=== PATIENT | female | born 1955 | race Caucasian/White ===

== ENCOUNTER → 2016-05-23 | Outpatient (CLI) | payer BC ==
[~2016-05-23] MED LIST: ASPI-482 PO; CRESTOR10 MG PO; IBUP50DR45 PO; RANI75TA12 PO
--- NOTE | 2016-05-23 16:00 | KCIC ---
Ultrasound Pelvis Indication:Reason For Study Reason: PELVIC PAIN / Spl. Instructions: / History: Technique: Multiple real-time grayscale images were obtained over the pelvis transabdominally and transvaginally. Color Doppler imaging was utilized. Findings: The uterus is normal in size measuring 5.0 x 3.2 x 2.6 cm. The endometrium is also within normal limits measuring 2 mm in thickness. The ovaries are not visualized. No pelvic free fluid is identified. Impression: Nonvisualization of the bilateral ovaries. The uterus is normal in appearance. No free pelvic fluid. Electronically signed by: Tony Crow (May 23, 2016 15:58:50)
== END | disposition home or self-care (01) ==
LOC: KCIC US 12:53
PROVIDERS: ATTEND Family Medicine
DX: R10.2 Pelvic and perineal pain (principal)
CPT/HCPCS: 76830; 76856

== ENCOUNTER → 2016-06-05 | Outpatient (CLI) | payer BC ==
[~2016-06-05] MED LIST changes: +IOHEXOL 240 MG/ML 50ML VIAL. PO ONE; +IOHEXOL 300 MG/ML 100ML VIAL. IV ONE
--- NOTE | 2016-06-05 15:43 | KCIC ---
PROCEDURE CT abdomen and pelvis with contrast. HISTORY Right groin pain, palpable mass. TECHNIQUE Helical CT imaging of the abdomen and pelvis performed after oral contrast and 98 cc Omnipaque 300 IV contrast. PQRS: One or more the following individualized dose reduction techniques were utilized for the study: 1. Automated exposure control. 2. Adjustment of the mA and/or kV according to patient size. 3. Use of iterative reconstruction technique. COMPARISON None. FINDINGS Moderate scarring and/or atelectasis in the lung bases. Lateral right lower lobe bulla. Cardiac size normal. Cholecystectomy. Common bile duct is prominent but tapers distally. Liver, spleen, pancreas, adrenal glands, and abdominal aortic caliber are normal. Moderate atherosclerotic calcification. Kidneys enhance symmetrically without hydronephrosis. Stomach unremarkable. No dilated small bowel. Sigmoid colon diverticulosis without inflammation. Portions of transverse colon not well distended accentuating wall thickness. No colon wall thickening is seen. Appendix is small caliber. Urinary bladder is normal. Uterus atrophic. Ovaries symmetric. No pelvic free fluid. Subcentimeter bilateral inguinal lymph nodes. There appears to be small right inguinal hernia that contains fluid and fat. Hernia defect best suggested on coronal image 21. Mild right convexity lumbar scoliosis. Degenerative change. IMPRESSION 1. Small right inguinal hernia contains fluid and fat. 2. Sigmoid colon diverticulosis without evidence of diverticulitis. 3. Moderate scarring and/or atelectasis in the lung bases. Electronically signed by: Noel Castañeda MD (Jun 05, 2016 15:42:34)
== END | disposition home or self-care (01) ==
LOC: KCIC CT 14:05
PROVIDERS: ATTEND Family Medicine
DX: R10.31 Right lower quadrant pain (principal); N28.89 Other specified disorders of kidney and ureter; R19.00 Intra-abdominal and pelvic swelling, mass and lump, unspecified site
CPT/HCPCS: 74177; Q9966; Q9967

== ENCOUNTER → 2017-07-09 | Outpatient (CLI) | payer BC ==
[~2017-07-09] MED LIST changes: -ASPI-482 PO; +CONTRAST GIVEN MC; -CRESTOR10 MG PO; -IBUP50DR45 PO; -IOHEXOL 240 MG/ML 50ML VIAL. PO ONE; -IOHEXOL 300 MG/ML 100ML VIAL. IV ONE; -RANI75TA12 PO
[2017-07-09] MEDS: IOHEXOL 240 MG/ML 50ML VIAL. PO (14:49)
[2017-07-09] MEDS: IOHEXOL 300 MG/ML 100ML VIAL. IV (14:49)
== END | disposition home or self-care (01) ==
LOC: KCIC DEXA 13:01
DX: Z12.31 Encounter for screening mammogram for malignant neoplasm of breast (principal); Z13.820 Encounter for screening for osteoporosis; K40.90 Unilateral inguinal hernia, without obstruction or gangrene, not specified as recurrent; K57.30 Diverticulosis of large intestine without perforation or abscess without bleeding; M81.0 Age-related osteoporosis without current pathological fracture; G89.18 Other acute postprocedural pain; Z78.0 Asymptomatic menopausal state; Z90.49 Acquired absence of other specified parts of digestive tract
CPT/HCPCS: 74177; 77063; 77067; 77080; Q9966; Q9967

== ENCOUNTER → 2018-08-12 | Outpatient (CLI) | payer BC ==
[2016-11-22 11:36] VITALS: BP 124/52
[~2018-08-12] MED LIST changes: +ASPI-482 PO; -CONTRAST GIVEN MC; +CRESTOR10 MG PO; +IBUP50DR45 PO; +OXYC1TAB15 PO; +RANI75TA89 PO
--- NOTE | 2018-08-12 15:39 | KCIC ---
Two-view chest dated 08/12/2018. Comparison made to 06/05/2005. CLINICAL INDICATION: Emphysema. History of prior tobacco use. FINDINGS: PA and lateral views obtained. Heart and mediastinal contours are stable. Postsurgical changes at the right lung apex and right perihilar region with biapical lucency, unchanged. No consolidation or pleural effusion. No pneumothorax. IMPRESSION: No acute radiographic abnormality. Stable findings compared to 06/05/2005. Electronically signed by: Jasper Olson MD (08/12/2018 3:36 PM) [id number]
--- NOTE | 2018-08-12 16:02 | KCIC ---
EXAM: Bilateral digital screening mammogram with tomosynthesis. HISTORY: 63-year-old female presents for screening mammography. TECHNIQUE: Full-field digital craniocaudal and mediolateral oblique 2D and 3D tomosynthesis images of both breasts are obtained for evaluation. Computer aided detection with AdTrib[employer] software version 9.3 was applied. COMPARISON: 07/09/2017 BREAST PARENCHYMAL DENSITY: Level C - Heterogeneously dense. FINDINGS: There is no new suspicious mass, microcalcification or region of architectural distortion. There is stable areas of nodularity and asymmetry within both breasts. Benign calcifications. IMPRESSION: BI-RADS Category 2: Benign finding(s). RECOMMENDATION: Annual mammography is recommended. If your mammogram demonstrates that you have dense breast tissue, which could hide abnormalities, and if you have other risk factors for breast cancer that have been identified, you might benefit from supplemental screening tests that may be suggested by your ordering physician. Dense breast tissue, in and of itself, is a relatively common condition. This information is not provided to cause undue concern, but rather to raise your awareness and to promote discussion with your physician regarding the presence of other risk factors, in addition to dense breast tissue. A report of your mammography results will be sent to you and your physician. You should contact your physician if you have any questions or concerns regarding this report. Mammography is a sensitive method for finding small breast cancers, but it does not detect them all and is not a substitute for careful clinical examination. A negative mammogram does not negate a clinically suspicious finding and should not result in delay in biopsying a clinically suspicious abnormality. PQRS compliance statement - Patient information was entered into a reminder system with a target due date for the next mammogram. "Our facility is accredited by the [employer] Mammography [employer]." Electronically signed by: Kasia Lopez MD (08/12/2018 3:59 PM) [id number]
== END | disposition home or self-care (01) ==
LOC: KCIC MAMMO 14:43
PROVIDERS: ATTEND Family Medicine
DX: Z12.31 Encounter for screening mammogram for malignant neoplasm of breast (principal); N64.89 Other specified disorders of breast; J43.9 Emphysema, unspecified; Z87.891 Personal history of nicotine dependence
CPT/HCPCS: 71046; 77063; 77067

== ENCOUNTER → 2018-11-11 | Outpatient (CLI) | payer BC ==
[2016-11-22 11:36] VITALS: BP 124/52
[~2018-11-11] MED LIST changes: +CONTRAST GIVEN. MC PRN; +IOHEXOL 240 MG/ML 50ML VIAL. PO ONE; +IOHEXOL 300 MG/ML 100ML VIAL. IV ONE
--- NOTE | 2018-11-11 16:14 | KCIC ---
EXAM: CT Abdomen and Pelvis with IV contrast CLINICAL HISTORY: Right lower quadrant pain. COMPARISON: 07/09/2017 11/16/2016 TECHNIQUE: Helical CT of the abdomen and pelvis was performed following the administration of intravenous contrast. Axial, coronal and sagittal reformatted images were generated. PQRS compliance statement - One or more of the following individualized dose reduction techniques were utilized for this study: 1. Automated exposure control 2. Adjustment of the mA and/or kV according to patient size 3. Use of iterative reconstruction technique FINDINGS: Lower chest: Bilateral emphysematous changes are seen. No lobar consolidation. Abdomen and Pelvis: Diffusely decreased hepatic attenuation may be seen with hepatic steatosis. No focal liver lesion. There has been a cholecystectomy although degree of biliary ductal dilatation is greater than expected measuring up to 15 mm. Spleen is unremarkable. Adrenal glands are normal. Pancreas is mildly atrophic. Symmetric nephrograms. Right interpolar and lower pole renal cortical scarring. No hydronephrosis or hydroureter. Bladder is unremarkable. Moderate colonic stool content is seen. Appendix is normal. No small or large bowel dilatation. No evidence for bowel obstruction. Colonic diverticulosis without evidence for acute diverticulitis. Asymmetric enlargement of the right tensor fascia robbie with fatty atrophy of the left tensor fascia robbie. Bones: Degenerative changes of the spine are seen. No aggressive osseous lesion. Thoracolumbar scoliosis. IMPRESSION: 1. Hepatic hypoattenuation may be seen with hepatic steatosis. 2. Appendix is normal. 3. Intermittent right renal cortical thinning, chronic scarring 4. Although there is been a cholecystectomy, there is biliary ductal dilatation. This can be correlated with patient's lab values and if further imaging is required, MRI/MRCP would provide additional details. Of note, the degree of dilatation is only marginally increased relative to prior CT from 07/09/2017 and 11/16/2016. 5. Asymmetric enlargement of the right tensor fascia robbie with fatty atrophy of the left tensor fascia robbie. Electronically signed by: Paul Robison MD (11/11/2018 4:11 PM) [facility]
== END | disposition home or self-care (01) ==
LOC: KCIC CT 12:48
PROVIDERS: ATTEND Family Medicine
DX: K86.89 Other specified diseases of pancreas (principal); N28.89 Other specified disorders of kidney and ureter; J43.9 Emphysema, unspecified; M62.89 Other specified disorders of muscle; M62.58 Muscle wasting and atrophy, not elsewhere classified, other site; M47.9 Spondylosis, unspecified; Z79.01 Long term (current) use of anticoagulants; Z88.0 Allergy status to penicillin; Z90.49 Acquired absence of other specified parts of digestive tract
CPT/HCPCS: 74177; 82565; Q9966; Q9967

== ENCOUNTER → 2020-06-01 | Outpatient (CLI) | payer BC ==
[2016-11-22 11:36] VITALS: BP 124/52
[~2020-06-01] MED LIST changes: -CONTRAST GIVEN. MC PRN; -IOHEXOL 240 MG/ML 50ML VIAL. PO ONE; -IOHEXOL 300 MG/ML 100ML VIAL. IV ONE
--- NOTE | 2020-06-01 13:45 | KCIC ---
Bilateral digital screening mammograms with 3-D tomosynthesis: Reason for examination: Routine screening. Comparison is made to previous studies dated back to 02/08/2016. Bilateral mammograms in CC and oblique projections were obtained with 2-D imaging and 3-D tomosynthes is imaging on a Siemens Inspiration unit and reviewed on the workstation. Interpretation was made mary knutson the benefit of CAD. The skin and nipples show no abnormalities. No abnormal axillary lymph nodes are seen. The breast par enchyma shows scattered fatty and fibroglandular density. (Breast density: Category B.) There continu e to be parenchymal asymmetries bilaterally which are stable. There are small nodular parenchymal den sities bilaterally which are stable. There are no new dominant masses, suspicious calcifications or a rchitectural distortion. Benign calcifications are present. Impression: No evidence of malignancy. Recommend routine screening. BI-RAD Category 2: Benign. "Our facility is accredited by the [employer] Mammography Program." This patient's information has been entered into a reminder system for the patient to be notified wit h the results of her examination and a target date for the next mammogram. Electronically signed by: Janna Shelley MD (06/01/2020 1:43 PM) [id number]
== END ==
LOC: KCIC MAMMO 12:29
PROVIDERS: ATTEND Family Medicine
DX: Z12.31 Encounter for screening mammogram for malignant neoplasm of breast (principal)
CPT/HCPCS: 77063; 77067

== ENCOUNTER → 2020-10-25 | Outpatient (CLI) | payer BC, OTHER ==
[2016-11-22 11:36] VITALS: BP 124/52
[~2020-10-25] MED LIST changes: +IOHEXOL 240 MG/ML 50ML VIAL. PO ONE; +IOHEXOL 300 MG/ML 100ML VIAL. IV ONE
--- NOTE | 2020-10-25 14:57 | KCIC ---
PQRS Compliance Statement: One or more of the following individualized dose reduction techniques were utilized for this examinat ion: 1. Automated exposure control 2. Adjustment of the mA and/or kV according to patient size 3. Use of iterative reconstruction technique CT ABDOMEN+PELVIS W 10/25/2020 1:30 PM Indication: Right and left lower quadrant abdominal pain. Chronic constipation. COMPARISON: CT abdomen/pelvis 11/11/2018 TECHNIQUE: Multiple axial CT images of the abdomen and pelvis were obtained after the intravenous adm inistration of 90 cc Omnipaque 300. Coronal and sagittal reformats are provided. FINDINGS: Moderate pulmonary emphysema identified at the lung bases. There is suggestion of air trapping medial right middle lobe. Heart size within normal limits. Liver is normal in appearance. Hepatic lesions. Portal venous system is widely patent. Mild intrahepatic and extra hepatic biliary ductal dilatation status post cholecystectomy, likely associated with the reservoir effect. Spleen and adrenal glands a re normal in appearance. Moderate fatty atrophy of the pancreas. Ectasia of infrarenal abdominal aort a measuring up to 2.1 cm dense calcified atheromatous plaque. There is a right pelvic sidewall lymph node measuring 9 mm (series 2, image 61). No free fluid or free intraperitoneal air. Oral contrast was administered. Opacified bowel loops demonstrate normal mucosal fold pattern. Small and large bowel are normal in caliber. There is no evidence for bowel obstruction. There are no peric olonic inflammatory changes. A normal, nondilated appendix is visualized without adjacent inflammator y changes. The kidneys enhance symmetrically. There is no suspicious renal mass. There is no hydronephrosis. The re are no suspected calculi within the kidneys, ureters or urinary bladder. Interbody is within jose l limits in degree of distention. Uterus and adnexa are normal by CT. There is a stable area of fat n ecrosis in the anterior right pelvis measuring 2.7 cm (series 2, image 70). No suspicious osseous abnormality. Moderate lumbar spondylosis with reversal shape scoliosis of the t horacolumbar spine. IMPRESSION: No evidence for bowel obstruction or inflammation. Mild intrahepatic and extrahepatic biliary duct dilatation status post cholecystectomy, likely reserv oir effect. Ectasia of the infrarenal abdominal aorta is stable. Focal area of fat necrosis identified in the anterior pelvis, stable. Electronically signed by: Thuy Brown MD (10/25/2020 2:54 PM) [id number]
== END ==
LOC: KCIC CT 12:41
PROVIDERS: ATTEND Family Medicine
DX: K59.09 Other constipation (principal); I77.811 Abdominal aortic ectasia; K76.9 Liver disease, unspecified; K86.89 Other specified diseases of pancreas; R00.2 Palpitations; M47.816 Spondylosis without myelopathy or radiculopathy, lumbar region; M41.85 Other forms of scoliosis, thoracolumbar region; M79.89 Other specified soft tissue disorders; J43.9 Emphysema, unspecified
CPT/HCPCS: 74177; Q9966; Q9967

== ENCOUNTER → 2021-07-26 | Outpatient (CLI) | payer MEDICARE ==
[2016-11-22 11:36] VITALS: BP 124/52
[~2021-07-26] MED LIST changes: -IOHEXOL 240 MG/ML 50ML VIAL. PO ONE; -IOHEXOL 300 MG/ML 100ML VIAL. IV ONE
--- NOTE | 2021-07-29 08:57 | KCIC ---
EXAM: XR RIBS MIN 3 VIEWS LT W/PA CHEST 07/26/2021 2:45 PM CLINICAL INDICATION: Left lower anterior rib pain for 2 weeks after eating against a hard surface COMPARISON: Chest radiograph 08/12/2018 TECHNIQUE: AP and oblique views of the left ribs. PA view of the chest. FINDINGS: There is no displaced left rib fracture. The heart is normal in size. Lungs are adequately expanded. There are surgical clips along the right mediastinum. No consolidation, pleural effusion, o r pneumothorax. IMPRESSION: No left rib fracture or acute cardiopulmonary abnormality. Electronically signed by: Marcella Tellez MD (07/29/2021 8:55 AM) [id number]
== END ==
LOC: KCIC 14:38
PROVIDERS: ATTEND Family Medicine
DX: R07.89 Other chest pain (principal); Z98.890 Other specified postprocedural states
CPT/HCPCS: 71101